=== PATIENT | male | born 1975 | race Caucasian/White ===

== ENCOUNTER 2018-04-15 12:39 | Outpatient (CLI) | payer BC ==
--- NOTE | 2018-04-15 15:33 | RAD ---
CHEST 2 VIEWS: Date: 04/15/18 HISTORY: Cough. COMPARISON: None. FINDINGS: There are some linear opacities left lung base. No pneumothorax. No large effusion. IMPRESSION: Linear opacities left lung base may reflect early infection. Follow-up after treatment recommended. POS: [facility]
== END 2018-04-15 12:40 | disposition home or self-care (01) ==
LOC: SCSRAD 12:39
PROVIDERS: ATTEND Family Medicine
DX: R50.9 Fever, unspecified (principal); R91.8 Other nonspecific abnormal finding of lung field
CPT/HCPCS: 71046

== ENCOUNTER 2019-06-27 21:19 | Emergency (ER) | payer BC ==
[2019-06-27] MEDS ORDERED: Adacel (T-DAP) 0.5 ML SYRINGE ONE (21:29)
== END 2019-06-27 21:44 | disposition home or self-care (01) ==
LOC: SCSER 21:19
DX: T63.001A Toxic effect of unspecified snake venom, accidental (unintentional), initial encounter (principal); J45.909 Unspecified asthma, uncomplicated; Z79.51 Long term (current) use of inhaled steroids
CPT/HCPCS: 90471; 90715